=== PATIENT | female | born 2000 | race American Indian/Alaskan Native ===

== ENCOUNTER 2021-12-15 06:31 | Emergency (ER) | payer OTHER, MEDICAID ==
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
[2021-12-15] MEDS ORDERED: MORPHINE 4 MG/1 ML INJ IV ONE ×2 (10:07→12:38)
[2021-12-15] MEDS ORDERED: ONDANSETRON 4 MG/2 ML INJ IV ONE (10:07)
[2021-12-15] MEDS ORDERED: KETOROLAC 30 MG/1 ML INJ IV ONE (10:07)
[2021-12-15 11:00] LABS: Basophils % (Auto) 0.4 % (0.0-1.8); Eosinophils % (Auto) 0.4 % (0.0-4.3); Hematocrit 39.5 % (30.3-42.9); Hemoglobin 12.9 gm/dl (10.1-14.3); Lymphocytes % (Auto) 25.9 % (13.4-35.0); Mean Corpuscular HGB Conc 33 % (30-34); Mean Corpuscular Volume 84 fl (79-97); Monocytes # (Auto) 0.5 K/mm3 (0.0-0.8); Monocytes % (Auto) 6.1 % (0.0-7.3); Platelet Count 202 K/mm3 (140-440); Red Blood Count 4.72 M/mm3 (3.65-5.03); Red Cell Distribution Width 13.2 % (13.2-15.2)
[2021-12-15 11:16] LABS: Alanine Aminotransferase 13 units/L (7-56); Albumin 4.5 g/dL (3.9-5); Blood Urea Nitrogen 19 mg/dL (7-17); Calcium 9.7 mg/dL (8.4-10.2); Hemolysis Index 5
[2021-12-15 11:23] LABS: BUN/Creatinine Ratio 27
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
[2021-12-15] MEDS ORDERED: HYDROmorphone 0.5 MG/0.5 ML INJ IV ONE (14:55)
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
[2021-12-15 16:44] VITALS: BP 117/70
== END 2021-12-15 16:45 | disposition home or self-care (01) ==
LOC: ED 06:31
DX: S22.088A Other fracture of T11-T12 vertebra, initial encounter for closed fracture (principal); R10.32 Left lower quadrant pain; J45.909 Unspecified asthma, uncomplicated; Z87.891 Personal history of nicotine dependence; Z79.899 Other long term (current) drug therapy; V02.99XA Pedestrian with other conveyance injured in collision with two- or three-wheeled motor vehicle, unspecified whether traffic or nontraffic accident, initial encounter; Y93.89 Activity, other specified; Y92.410 Unspecified street and highway as the place of occurrence of the external cause; Y99.8 Other external cause status
CPT/HCPCS: 36415; 71260; 72125; 72128; 72131; 74177; 80053; 84703; 85025; 96374; 96375; 96376; 99284; J1170; J1885; J2270; J2405; Q9967